=== PATIENT | female | born 1990 | race Caucasian/White ===

== ENCOUNTER → 2022-03-17 | Emergency (ER) | payer SELFPAY ==
--- NOTE | 2022-03-17 19:51 | NUR ---
PATIENT REFUSED TO BE SEEN BY A OHYSICIAN AND LEFT BEFORE TRIAGE ASSESSMENT. MD HUITRON
--- NOTE | 2022-03-17 20:24 | NUR ---
UNABLE TO DEPART THE PATIENT. CALLED IT WITH TICKET NUMBER: [phone]
== END | disposition left against medical advice (07) ==
LOC: ER 19:48
DX: Z53.21 Procedure and treatment not carried out due to patient leaving prior to being seen by health care provider (principal)

== ENCOUNTER 2024-05-07 16:14 | Emergency (ER) | payer OTHER ==
[~2024-05-07] VITALS: Ht 167.6 cm; Wt 68.0 kg
[2024-05-07 16:43] VITALS: TEMP 98.5
[2024-05-07 17:31] LABS: BASOPHILS # (AUTO) 0.1 K/uL (0.0-0.2); BASOPHILS % (AUTO) 0.5 % (0.0-2.0); EOSINOPHILS # (AUTO) 0.1 K/uL (0.0-0.7); EOSINOPHILS % (AUTO) 0.6 % (0.0-6.0); HEMATOCRIT 39 % (33-45); HEMOGLOBIN 13.3 g/dL (11.5-14.8); LYMPHOCYTES # (AUTO) 1.6 K/uL (0.8-4.8); LYMPHOCYTES % (AUTO) 15.6 % (20.0-44.0); MEAN CORPUSCULAR HEMOGLOBIN 35 PG (26.0-33.0); MEAN CORPUSCULAR HGB CONC 34 g/dl (31.0-36.0); MEAN CORPUSCULAR VOLUME 102 fL (82-100); MONOCYTES # (AUTO) 0.4 K/uL (0.1-1.30); MONOCYTES % (AUTO) 3.9 % (2.0-12.0); NEUTROPHILS % (AUTO) 79.4 % (43.0-81.0); PLATELET COUNT (AUTO) 380 K/uL (150-450); WHITE BLOOD COUNT (AUTO) 10.1 K/uL (4.3-11.0)
[2024-05-07] MEDS ORDERED: PHENOBARBITAL SODIUM 130 MG/ML VIAL ONE ×2 (17:32→19:54)
[2024-05-07] MEDS ORDERED: ONDANSETRON HCL/PF 4 MG/2 ML VIAL ONE (17:32)
[2024-05-07 17:38] LABS: CALCIUM, SERUM 10.3 mg/dL (8.5-10.1); CARBON DIOXIDE 26 mmol/L (21-32); CHLORIDE 95 mmol/L (98-107); CREATININE 0.8 mg/dL (0.6-1.3); GLUCOSE 106 mg/dL (74-106); POTASSIUM 3.4 mmol/L (3.5-5.1); SODIUM SERUM 135 mmol/L (136-145); UREA NITROGEN, BLOOD 6 mg/dL (7-18)
[2024-05-07] MEDS: IV NS 0.9% 1,000 ML BAG IV ONE (17:40)
[2024-05-07] MEDS: ONDANSETRON HCL/PF 4 MG/2 ML VIAL IVP ONE (17:41)
[2024-05-07 17:43] LABS: ACETAMINOPHEN < 10 ug/ml (10-30); ALANINE AMINOTRANSFERASE 39 U/L (12-78); ALCOHOL, BLOOD < 3 mg/dL (0-10); ALKALINE PHOSPHATASE 85 U/L (46-116); ASPARTATE AMINOTRANSFERASE 47 U/L (15-37); BILIRUBIN,DIRECT 0.3 mg/dL (0.0-0.2); BILIRUBIN,TOTAL 0.9 mg/dL (0.2-1.0); TOTAL PROTEIN, SERUM 8.5 g/dL (6.4-8.2)
[2024-05-07] MEDS: PHENOBARBITAL SODIUM 130 MG/ML VIAL IV ONE ×2 (17:43→20:00)
[2024-05-07 17:47] LABS: SALICYLATE 1.1 mg/dL (2.8-20.0)
[2024-05-07 19:09] LABS: LYMPHOCYTES % (MANUAL) 24 % (16-48); MONOCYTES % (MANUAL) 3 % (0-11.0); NEUTROPHILS % (MANUAL) 73 (42-76); PLATELET ESTIMATE ADEQU
[2024-05-07 19:10] LABS: ANISOCYTOSIS 1+; STOMATOCYTES RARE
[2024-05-07 19:32] LABS: APPEARANCE,URINE CLEAR (CLEAR); BILIRUBIN,URINE NEGATIVE (NEGATIVE); BLOOD, URINE NEGATIVE Ery/uL (NEGATIVE); COLOR,URINE YELLOW (YELLOW); KETONES,URINE TRACE mg/dL (NEGATIVE); LEUKOCYTE ESTERASE ,URINE TRACE (NEGATIVE); NITRITE, URINE NEGATIVE (NEGATIVE); PROTEIN,URINE NEGATIVE (NEGATIVE); UGLUCOSE NEGATIVE (NEGATIVE); UROBILINOGEN,URINE 0.2 EU/dL (0.2)
[2024-05-07 19:50] LABS: AMPHETAMINE, URINE POSITIVE (NEGATIVE); BARBITURATE, URINE POSITIVE (NEGATIVE); BENZODIAZEPINE, URINE POSITIVE (NEGATIVE); CANNABINOID, URINE NEGATIVE (NEGATIVE); COCCAINE, URINE NEGATIVE (NEGATIVE); OPIATE, URINE NEGATIVE (NEGATIVE); PHENCYCLIDINE SCREEN,URINE NEGATIVE (NEGATIVE)
[2024-05-07 19:55] LABS: PREGNANCY TEST URINE QUAL NEGATIVE (NEGATIVE)
[2024-05-07 20:40] LABS: ADD URINE CULTURE NO; BACTERIA,URINE RARE /HPF (None Seen); RBC,URINE 0-2 /HPF (0-2)
[2024-05-07 21:00] VITALS: BP 127/105; O2SAT 100
[2024-05-07] MEDS: THIAMINE HCL 100 MG TABLET PO ONE (22:05)
[2024-05-07] MEDS: CHLORDIAZEPOXIDE HCL 25 MG CAPSULE PO ONE (22:05)
== END 2024-05-07 23:34 | disposition short-term general hospital (02) ==
LOC: ER 16:17
DX: F10.239 Alcohol dependence with withdrawal, unspecified (principal); F19.10 Other psychoactive substance abuse, uncomplicated; R00.2 Palpitations; R10.2 Pelvic and perineal pain; F41.9 Anxiety disorder, unspecified; R00.0 Tachycardia, unspecified; Z59.00 Homelessness unspecified
CPT/HCPCS: 99291; 96374; 96361; 96375; 93005; 96376; 85025; 80048; 80076; 84703; 85007; 81001; 36415; 80143; 80320; 80307; J2560 ×2; J2405; J7030; G0480